=== PATIENT | female | born 1960 | race Hispanic/Latino ===

== ENCOUNTER → 2019-01-31 | Outpatient (CLI) | payer OTHER ==
--- NOTE | 2019-01-31 15:22 | Diagnostic Imaging Report ---
EXAMINATION: PA and lateral views of the chest. COMPARISON: None CLINICAL HISTORY: Chest pain DISCUSSION: Lines/tubes: None. Lungs: The lungs are well inflated and clear. No pneumonia or pulmonary edema. Pleura: No pleural effusion or pneumothorax. Heart and mediastinum: The cardiomediastinal silhouette is normal. Bones and soft tissues: No acute bony abnormalities. IMPRESSION: No acute cardiopulmonary abnormalities. Signed by: Dr. Bethel Cox M.D. on 01/31/2019 3:19 PM
== END ==
LOC: RESP 14:26
PROVIDERS: ATTEND Internal Medicine
DX: R07.9 Chest pain, unspecified (principal); J06.9 Acute upper respiratory infection, unspecified
CPT/HCPCS: 71046

== ENCOUNTER → 2019-03-07 | Outpatient (CLI) | payer OTHER | LOC: MAMMO 12:31 | PROVIDERS: ATTEND Internal Medicine | DX: Z12.31 Encounter for screening mammogram for malignant neoplasm of breast (principal) | CPT/HCPCS: 77067 ==

== ENCOUNTER 2019-03-16 20:47 | Emergency (ER) | payer OTHER ==
[~2019-03-16] VITALS: Ht 152.4 cm; Wt 84.4 kg
--- OUTSIDE RECORDS SUMMARY | 2019-03-16 20:49 | XMS REPORT ---
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 Allergies, Adverse Reactions, Alerts This patient has no known allergies or adverse reactions. Medications This patient has no known medications. Encounters Start Date/Time End Date/Time Encounter Type Admission Type Attending [facility] [place] Facility Care Department Encounter ID 2017-12-30 10:12:48 2017-12-30 10:12:[address] [facility] [id number] 2017-12-30 09:00:08 2017-12-30 09:00:[address] [facility] [id number] 2017-12-26 00:00:00 2017-12-26 00:00:[address] [facility] [id number] 2017-11-22 00:00:00 2017-11-22 00:00:[address] [facility] [id number] 2017-11-15 11:23:18 2017-11-15 11:23:[address] [facility] [id number] 2017-09-27 13:37:21 2017-09-27 13:37:[address] [facility] [id number] 2017-09-05 21:16:43 2017-09-05 21:16:43 Emergency [facility] [id number] 2017-08-25 08:33:33 2017-08-25 08:33:[address] [facility] [id number] 2017-06-30 10:32:00 2017-06-30 10:32:[address] [facility] [id number] 2017-06-16 09:11:37 2017-06-16 09:11:[address] [facility] [id number] 2017-06-16 09:04:14 2017-06-16 09:04:[address] [facility] [id number] 2017-06-16 09:03:29 2017-06-16 09:03:[address] [facility] [id number] 2017-06-16 08:28:49 2017-06-16 08:28:[address] [facility] [id number] 2017-06-06 15:02:43 2017-06-06 15:02:[address] [facility] [id number] Results Test Description Test Time Test Comments Text Results Atomic Results Result Comments CHEST 2 VIEWS 2019-01-31 15:18:00 [place] [address] Patient Name: FABIANO DIXON MR #: [id number] : 1960 Age/Sex: 58/F Req #: [id number] Adm Physician: Ordered by: JUAN C SR MD Report #: [id number] Location: [facility] Room/Bed: Procedure: [id number] DX/CHEST 2 VIEWS Exam Date: 01/31/19 Exam Time: 1508 REPORT STATUS: Signed EXAMINATION: PA and lateral views of the chest. COMPAR CLAIRE: None CLINICAL HISTORY: Chest pain DISCUSSION: Lines/tubes: None. Lungs: The lungs are well inflated and clear. No pneumonia or pulmonary edema. Pleura: No pleural effusion or pneumothorax. Heart and mediastinum: The cardiomediastinal silhouette is normal. Bones and soft tissues: No acute bony abnormalities. IMPRESSION: No acute cardiopulmonary abnormalities. Signed by: Dr. Sanjeev Lee M.D. on 01/31/2019 3:19 PM Dictated By: SANJEEV LEE MD [id number] Transcribed By: CARLEY on 01/31/19 [id number] COPY TO: JUAN C SR MD
[2019-03-16] MEDS ORDERED: ONDANSETRON HCL INJ 2MG/ML 2ML 2 MG/ML VIAL IV ONE (20:57)
[2019-03-16] MEDS ORDERED: MORPHINE SULFATE INJ 4 MG/ML INJ 1ML IV PRN (21:00)
[2019-03-16] MEDS ORDERED: DIATRIZOATE MEGL/DIATRIZOA SOD 30 ML BTL PO ONE ×2 (21:21→21:26)
[2019-03-16 21:27] LABS: BASOPHILS # (AUTO) 0.1 (0.0-0.1); BASOPHILS % 0.5 % (0.0-1.0); EOSINOPHILS # (AUTO) 0.1 (0.0-0.4); EOSINOPHILS % 1.3 % (0.0-6.0); HEMATOCRIT 36.5 % (34.2-44.1); HEMOGLOBIN 12.4 g/dL (12.0-16.0); LYMPHOCYTES # (AUTO) 2.3 (1.0-3.2); LYMPHOCYTES % 24.6 % (18.0-39.1); MEAN CORPUSCULAR HEMOGLOBIN 29.7 pg (28-32); MEAN CORPUSCULAR VOLUME 87.3 fL (81-99); MONOCYTES # (AUTO) 0.8 (0.2-0.8); MONOCYTES % 8.5 % (4.4-11.3); NEUTROPHILS # (AUTO) 6.1 (2.1-6.9); NEUTROPHILS % 64.9 % (38.7-80.0); PLATELET COUNT 292 x10e3/uL (140-360); RED BLOOD COUNT 4.18 x10e6/uL (3.6-5.1); RED CELL DISTRIBUTION WIDTH 13.1 % (11.7-14.4)
[2019-03-16 21:28] LABS: CLARITY,URINE SL CLOUDY (CLEAR); COLOR,URINE YELLOW (YELLOW); LEUKOCYTE ESTERASE ,URINE NEGATIVE (NEGATIVE); NITRITE,URINE NEGATIVE (NEGATIVE); PROTEIN,URINE DIPSTICK NEGATIVE (NEGATIVE)
[2019-03-16 21:29] LABS: BILIRUBIN,URINE NEGATIVE (NEGATIVE); KETONES,URINE NEGATIVE (NEGATIVE); URINE UROBILINOGEN 0.2 mg/dL (0.2 - 1)
[2019-03-16 21:43] LABS: ALANINE AMINOTRANSFERASE 24 IU/L (0-55); ALBUMIN 3.8 g/dL (3.5-5.0); ALBUMIN/GLOBULIN RATIO 1.1 (0.8-2.0); ALKALINE PHOSPHATASE 74 IU/L (40-150); ANION GAP 11.6 mmol/L (8-16); BLOOD UREA NITROGEN 14 mg/dL (7-26); BUN/CREATININE RATIO 21 (6-25); CALCIUM 10.1 mg/dL (8.4-10.2); CARBON DIOXIDE 24 mmol/L (22-29); CHLORIDE 106 mmol/L (98-107); CREATININE, SERUM 0.67 mg/dL (0.57-1.11); EST GLOMERULAR FILTRATION RATE > 60 ML/MIN (60-); GLUCOSE 120 mg/dL (74-118); POTASSIUM 3.6 mmol/L (3.5-5.1); SODIUM 138 mmol/L (136-145)
[2019-03-16 21:54] LABS: BACTERIA,URINE MODERATE /HPF; EPITHELIAL CELLS,URINE MODERATE /LPF; RBC,URINE 0-5 /HPF (0-5)
--- NOTE | 2019-03-16 23:08 | Diagnostic Imaging Report ---
EXAMINATION: CT of the abdomen and pelvis with contrast. TECHNIQUE: Helical CT images of the abdomen and pelvis were performed from the lung bases to the lesser trochanters after the intravenous administration of 100 cc of Omnipaque 300 and the oral administration of gastro. Coronal and sagittal reformatted images were obtained.Dose modulation, iterative reconstruction, and/or weight based adjustment of the mA/kV was utilized to reduce the radiation dose to as low as reasonably achievable. COMPARISON: None. CLINICAL HISTORY: DISCUSSION: ABDOMEN/PELVIS: LOWER THORAX:Unremarkable. HEPATOBILIARY: No focal hepatic lesions. No intra-or extrahepatic biliary ductal dilation. Cholecystectomy. SPLEEN: No splenomegaly. PANCREAS: No focal masses or ductal dilatation. ADRENALS: No adrenal nodules. KIDNEYS/URETERS: No hydronephrosis or solid mass lesions. Simple cyst right kidney. Punctate left renal calculus. PELVIC ORGANS/BLADDER: The bladder is normal. Hysterectomy. PERITONEUM/RETROPERITONEUM: No free air or fluid. LYMPH NODES: No intra-abdominal, retroperitoneal, pelvic or inguinal lymphadenopathy. VESSELS: None GI TRACT: Colonic diverticulosis with sigmoid diverticulitis. BONES AND SOFT TISSUE: No bony destructive lesions. No soft tissue abnormalities. IMPRESSION: Sigmoid diverticulitis. No abscess. Signed by: Dr. Bethel Cox M.D. on 03/16/2019 11:04 PM
[2019-03-16 23:19] VITALS: BP 127/76
[2019-03-17] MEDS ORDERED: IOPAMIDOL 370 MG/ML 200 ML INFUS..BTL INJ ONE (01:18)
[2019-03-17] MEDS ORDERED: SODIUM CHLORIDE 0.9% 50ML 50 ML ONE (01:18)
== END 2019-03-16 23:37 | disposition home or self-care (01) ==
LOC: ER 20:47
DX: R10.32 Left lower quadrant pain (principal); K57.32 Diverticulitis of large intestine without perforation or abscess without bleeding; I10 Essential (primary) hypertension; E11.9 Type 2 diabetes mellitus without complications
CPT/HCPCS: 36415; 74177; 80053; 81001; 85025; 96374; 96375; 99284; J2270; J2405

== ENCOUNTER → 2019-10-25 | Outpatient (CLI) | payer OTHER ==
--- NOTE | 2019-10-25 15:09 | Diagnostic Imaging Report ---
EXAMINATION: CHEST 2 VIEWS INDICATION: Bronchitis COMPARISON: None FINDINGS: LINES/TUBES:None LUNGS:The lungs are well-inflated. No focal consolidation or pulmonary edema. PLEURA:No pleural effusion or pneumothorax. MEDIASTINUM:The cardiomediastinal silhouette appears normal in size and shape. BONES/SOFT TISSUES:No acute osseous injury. Mild degenerative changes of the visualized spine. ABDOMEN:No free air under the diaphragm. Status post cholecystectomy. IMPRESSION: No focal pneumonia or pulmonary edema. Signed by: Rin Desai MD on 10/25/2019 3:05 PM
== END ==
LOC: RAD 13:43
PROVIDERS: ATTEND Internal Medicine
DX: J41.0 Simple chronic bronchitis (principal)
CPT/HCPCS: 71046

== ENCOUNTER → 2019-11-01 | Outpatient (CLI) | payer OTHER ==
--- NOTE | 2019-11-01 17:54 | Diagnostic Imaging Report ---
EXAM: LUMBAR 3 VIEW DATE: 11/01/2019 4:24 PM INDICATION: Back pain COMPARISON: None FINDINGS: AP, lateral, coned-down views are obtained of the lumbar spine There are 5 nonrib-bearing lumbar-type vertebral bodies. There is minimal atrial cc of L4 on L5. There is no evidence for acute fracture or dislocation. Vertebral body heights and intervertebral disc space heights are relatively well-maintained. No focal lytic or blastic abnormality is identified. There are mild degenerative changes of the lower lumbar spine. Cholecystectomy clips are noted within the right upper quadrant. The visualized abdominal contents are otherwise unremarkable. IMPRESSION: No acute radiographic abnormality identified within the lumbar spine. Signed by: Dr. George Alonso MD on 11/01/2019 5:50 PM
--- NOTE | 2019-11-01 17:55 | Diagnostic Imaging Report ---
EXAM: HIP RIGHT 2 views DATE: 11/01/2019 4:23 PM INDICATION: Hip pain COMPARISON: None FINDINGS: There is no evidence for acute fracture or dislocation. Bony mineralization is within normal limits. No focal lytic or blastic abnormality is identified. There is mild space narrowing. The surrounding soft tissues are unremarkable without evidence for radiopaque foreign body. IMPRESSION: No acute radiographic abnormality identified within the right hip. Signed by: Dr. George Alonso MD on 11/01/2019 5:51 PM
--- NOTE | 2019-11-01 17:59 | Diagnostic Imaging Report ---
EXAM: SACRUM X-RAY DATE: 11/01/2019 4:32 PM INDICATION: Pain COMPARISON: None FINDINGS: AP and lateral views obtained of the sacrum. There is no evidence for acute fracture or dislocation. No focal lytic or blastic abnormality is identified. The bilateral SI joints are unremarkable. Soft tissue calcifications noted within the gluteal region is noted within the gluteal region. The stranding soft tissues are otherwise unremarkable. IMPRESSION: No acute radiographic abnormality identified within the sacrum. Signed by: Dr. George Alonso MD on 11/01/2019 5:56 PM
== END ==
LOC: RAD 16:14
PROVIDERS: ATTEND Internal Medicine
DX: M16.11 Unilateral primary osteoarthritis, right hip (principal); M47.817 Spondylosis without myelopathy or radiculopathy, lumbosacral region
CPT/HCPCS: 72100; 72220

== ENCOUNTER → 2020-10-14 | Outpatient (CLI) | payer OTHER | LOC: MAMMO 09:47 | PROVIDERS: ATTEND Internal Medicine | DX: Z12.31 Encounter for screening mammogram for malignant neoplasm of breast (principal) | CPT/HCPCS: 77067 ==

== ENCOUNTER → 2025-06-12 | Outpatient (REF) | payer MEDICARE | LOC: MAMMO 14:50 | PROVIDERS: ATTEND Internal Medicine | DX: Z12.31 Encounter for screening mammogram for malignant neoplasm of breast (principal) | CPT/HCPCS: 77067 ==